=== PATIENT | female | born 1990 | race Two or more races ===

== ENCOUNTER 2022-02-08 10:39 | Emergency (ER) | payer OTHER ==
[2022-02-08 11:09] VITALS: BP 119/66; PULSE 94; TEMP 99.2; BMI 25.7
[2022-02-11 11:08] LABS: SARS-CoV-2 NAA Not Detected (Not Detected)
== END 2022-02-08 12:26 | disposition home or self-care (01) ==
LOC: JER 10:39
DX: J06.9 Acute upper respiratory infection, unspecified (principal)
CPT/HCPCS: 87804; 99283-25; C9803-CS; U0003; U0005

== ENCOUNTER 2022-07-17 16:12 | Emergency (ER) | payer OTHER ==
[2022-07-17 16:24] VITALS: BP 116/80; PULSE 64; RESP 18; TEMP 97.7; BMI 23.0
[2022-07-17] MEDS ORDERED: SODIUM CHLORIDE 1,000 ML IV STA (16:51)
[2022-07-17] MEDS ORDERED: ONDANSETRON 4 MG/2 ML VIAL IVPUSH ONE (16:51)
[2022-07-17] MEDS ORDERED: ACETAMINOPHEN 1000 MG/100 ML BAG IVPB ONE (16:51)
[2022-07-17] MEDS ORDERED: ONDANSETRON 4 MG/2 ML VIAL ONE (17:00)
[2022-07-17] MEDS ORDERED: ACETAMINOPHEN INJECTION 100 ML IVPB ONE (17:06)
[2022-07-17 17:13] LABS: BASO % 0.5 % (0-2.0); EOS % 1.2 % (0-4.5); HEMATOCRIT 38.6 % (32.4-45.2); LYMPH % 31.6 % (8-40); MCH 31.2 pg (25.7-33.7); MCHC 33.6 g/dl (32.0-36.0); MEAN CELL VOLUME 92.7 fl (80-96); MEAN PLT VOLUME 7.5 fl (7.5-11.1); MONO % 10.1 % (3.8-10.2); NEUT % 56.6 % (42.8-82.8); PLATELET COUNT 276 10^3/uL (134-434); RBC 4.16 M/mm3 (3.60-5.2); RDW 12.4 % (11.6-15.6); WHITE BLOOD COUNT 6.3 K/mm3 (4.0-10.0)
[2022-07-17 17:14] LABS: URINE APPEARANCE CLEAR; URINE BILIRUBIN NEGATIVE (NEGATIVE); URINE COLOR YELLOW; URINE GLUCOSE (UA) NEGATIVE (NEGATIVE); URINE KETONE NEGATIVE (NEGATIVE); URINE LEUK ESTERASE NEGATIVE (NEGATIVE); URINE NITRITE NEGATIVE (NEGATIVE); URINE PROTEIN NEGATIVE (NEGATIVE); URINE UROBILINOGEN 0.2 mg/dL (0.2-1.0)
[2022-07-17 17:17] LABS: HCG,QUALITATIVE URINE Negative
[2022-07-17 17:40] LABS: ALBUMIN 3.5 g/dl (3.4-5.0); BLOOD UREA NITROGEN 12.9 mg/dL (7-18)
[2022-07-17 17:43] LABS: CREATININE 0.7 mg/dL (0.55-1.3)
[2022-07-17 17:44] LABS: BILIRUBIN,TOTAL 0.2 mg/dL (0.2-1)
== END 2022-07-17 20:54 | disposition home or self-care (01) ==
LOC: JERFT 16:12 → JER 16:12 → JERFT 20:54
PROC: 3E0333Z Introduction of Anti-inflammatory into Peripheral Vein, Percutaneous Approach (ICD-10-PCS; principal; 2022-07-17)
PROC: 3E033GC Introduction of Other Therapeutic Substance into Peripheral Vein, Percutaneous Approach (ICD-10-PCS; 2022-07-17)
PROC: 3E0337Z Introduction of Electrolytic and Water Balance Substance into Peripheral Vein, Percutaneous Approach (ICD-10-PCS; 2022-07-17)
DX: N83.292 Other ovarian cyst, left side (principal); K59.00 Constipation, unspecified
CPT/HCPCS: 36415; 74177-TC; 80053; 81003; 83690; 84703; 85025; 87086; 99285-25; C9803-CS; Q9967; U0003; U0005

== ENCOUNTER 2023-06-12 08:22 | Emergency (ER) | payer OTHER ==
[2023-06-12 08:26] VITALS: BMI 26.0
[2023-06-12] MEDS ORDERED: IBUPROFEN 600 MG TABLET (FP) PO ONE ×2 (09:43→09:46)
[2023-06-12 10:07] VITALS: BP 109/73; PULSE 56; RESP 19; TEMP 97.5
== END 2023-06-12 10:10 | disposition home or self-care (01) ==
LOC: JER 08:22
DX: M79.602 Pain in left arm (principal)
CPT/HCPCS: 93005; 93010; 99283-25

== ENCOUNTER 2023-07-26 13:50 | Emergency (ER) | payer OTHER ==
[2023-07-26 14:04] VITALS: BP 128/75; PULSE 90; RESP 14; TEMP 98.6; BMI 25.0
[2023-07-26 15:47] LABS: EPI CELLS 1 /uL (0-25.1); HYALINE CASTS 0 /uL (0-3.1); URINE APPEARANCE CLEAR; URINE BACTERIA 9 /uL (0-1359); URINE BILIRUBIN NEGATIVE (NEGATIVE); URINE COLOR YELLOW; URINE GLUCOSE (UA) NEGATIVE (NEGATIVE); URINE KETONE NEGATIVE (NEGATIVE); URINE LEUK ESTERASE NEGATIVE (NEGATIVE); URINE NITRITE NEGATIVE (NEGATIVE); URINE PROTEIN NEGATIVE (NEGATIVE); URINE RBC 11 /uL (0-23.9); URINE UROBILINOGEN 0.2 mg/dL (0.2-1.0); URINE WBC 0 /uL (0-25.8)
== END 2023-07-26 16:43 | disposition home or self-care (01) ==
LOC: JERFT 13:50 → JER 13:50 → JERFT 16:43
DX: N64.4 Mastodynia (principal); N61.1 Abscess of the breast and nipple
CPT/HCPCS: 76642-TC-RT; 81003; 84703; 93005; 93010; 99284-25

== ENCOUNTER 2024-03-07 11:37 | Emergency (ER) | payer OTHER ==
[2024-03-07 11:51] VITALS: BP 120/69; PULSE 60; RESP 19; TEMP 97.8; BMI 24.0
[2024-03-07] MEDS ORDERED: LIDOCAINE 4% PATCH TP ONE (14:01)
[2024-03-07] MEDS ORDERED: IBUPROFEN 600 MG TABLET (FP) PO ONE (14:01)
[2024-03-07] MEDS: IBUPROFEN 600 MG TABLET (FP) PO ONE (14:04)
[2024-03-07] MEDS: LIDOCAINE 4% PATCH TP ONE (14:04)
[2024-03-07] MEDS ORDERED: LIDOCAINE PATCH REMOVAL MC SCH (22:00)
== END 2024-03-07 15:13 | disposition home or self-care (01) ==
LOC: JERFT 11:37
DX: R07.81 Pleurodynia (principal); M54.6 Pain in thoracic spine
CPT/HCPCS: 71101-TC-LT-FY; 99283-25

== ENCOUNTER 2024-05-12 04:22 | Day surgery (SDC) | payer OTHER ==
[2024-05-12] MEDS ORDERED: oxyCODONE HCL 5 MG TABLET PO PRN ×2 (07:53→12:09)
[2024-05-12] MEDS ORDERED: IBUPROFEN 400 MG TABLET (FP) PO PRN (07:53)
[2024-05-12] MEDS ORDERED: ACETAMINOPHEN 325 MG TABLET (FP) PO PRN (07:53)
[2024-05-12] MEDS ORDERED: MIDAZOLAM HCL 2 MG/2 ML SINGLE DOSE VIAL ONE (10:42)
[2024-05-12] MEDS ORDERED: LACTATED RINGERS SOLUTION 1,000 ML IV SCH (12:15)
[2024-05-12 14:09] VITALS: RESP 16
[2024-05-12 14:46] VITALS: BP 131/47; PULSE 60; TEMP 96.9
== END 2024-05-12 14:45 | disposition home or self-care (01) ==
LOC: JASU-SURG 04:22
PROVIDERS: ATTEND Obstetrics & Gynecology
PROC: 0UB98ZZ Excision of Uterus, Via Natural or Artificial Opening Endoscopic (ICD-10-PCS; principal; 2024-05-12 09:30)
DX: N92.0 Excessive and frequent menstruation with regular cycle (principal); D25.0 Submucous leiomyoma of uterus; N84.0 Polyp of corpus uteri; N84.1 Polyp of cervix uteri
CPT/HCPCS: 81025; 88305-TC; 94760